=== PATIENT | male | born 1975 | race American Indian/Alaskan Native ===

== ENCOUNTER 2020-06-12 13:30 | Outpatient (CLI) | payer OTHER ==
[2020-06-15 11:50] LABS: CD4/CD8 Ratio 0.56 (0.86-5.00)
== END 2020-06-12 13:31 | disposition home or self-care (01) ==
LOC: LAB 13:30
PROVIDERS: ATTEND Internal Medicine
DX: F32.9 Major depressive disorder, single episode, unspecified (principal); B20 Human immunodeficiency virus [HIV] disease
CPT/HCPCS: 36415; 82024; 84443